=== PATIENT | female | born 1965 | race Caucasian/White ===

== ENCOUNTER 2016-11-04 11:32 | Emergency (ER) | payer OTHER ==
[~2016-11-04] VITALS: Ht 154.9 cm; Wt 71.8 kg
[~2016-11-04 11:32] MED LIST: ADVIN10050 INH; ALBU1AER9 INH; AMIT75TA2 PO; BSP/10 PO; BUDE1TAB PO; ENT3 PO; HYDR12.56 PO; IPRA1AER2 INH; IPRASOL4 INH; OXYC1CAP5 PO; SIMV20TA5 PO; VENL150C56 PO
[2016-11-04 11:43] VITALS: Ht 154.9 cm; Wt 71.8 kg
[2016-11-04] MEDS ORDERED: VNTHFA/IN INH (12:19)
[2016-11-04] MEDS ORDERED: ONDANSETRON INJ 2 MG/ML 2 ML VIAL IV STA (12:58)
[2016-11-04] MEDS ORDERED: TRAMADOL HCL 50 MG TAB PO STA (12:58)
[2016-11-04] MEDS ORDERED: HYDROmorphone INJ 0.5 MG/0.5 ML SYR IV STA (12:58)
[2016-11-04] MEDS ORDERED: KETOROLAC TROMETHAMINE 15 MG/ML VIAL IV STA (12:58)
[2016-11-04] MEDS ORDERED: KETOROLAC TROMETHAMINE 30 MG/ML VIAL ONE (13:27)
[2016-11-04 13:35] LABS: BASO % 0.1 %; BASO ABS # 0.01 K/uL (0-0.2); COMPLETE YES; IG% 0.2 %; LYMPH % 14.9 %; LYMPH ABS # 2.09 K/uL (1.2-3.4); MEAN CELL VOLUME 91.1 fL (80-100); MEAN CORPUSCULAR HEMOGLOBIN 30.7 pg (25-34); MEAN CORPUSCULAR HGB CONC 33.7 g/dl (32-36); MEAN PLATELET VOLUME 9.4 fL (7.4-10.4); MONO % 5.6 %; NEUT % 79.2 %; PLATELET COUNT 293 K/uL (130-400); URINE APPEARANCE CLEAR (CLEAR); URINE BILIRUBIN NEG (NEG); URINE COLOR YELLOW; URINE NITRITE NEG (NEG); URINE SPECIFIC GRAVITY 1.023 (1.000-1.030); UROBILINOGEN NEG (NEG); WHITE BLOOD COUNT 14.04 K/uL (4.8-10.8); ZZUR CULT IF INDIC CLEAN CATCH NO
[2016-11-04 13:41] LABS: MANUAL MICROSCOPIC REQUIRED? NO; REVIEW REQ? NO
[2016-11-04 13:58] LABS: ALT/SGPT 21 U/L (12-78); BLOOD UREA NITROGEN 19 mg/dl (7-18); BUN/CREATININE RATIO 29.2 (10-20); CALCIUM 8.8 mg/dl (8.5-10.1); CARBON DIOXIDE 26 mmol/L (21-32); CHLORIDE 106 mmol/L (98-107); CREATININE 0.64 mg/dl (0.60-1.20); GLUCOSE 95 mg/dl (70-99); POTASSIUM 3.8 mmol/L (3.5-5.1); SODIUM 137 mmol/L (136-145)
[2016-11-04 14:03] LABS: ALKALINE PHOSPHATASE 107 U/L (45-117); AST/SGOT 15 U/L (15-37)
--- NOTE | 2016-11-04 14:32 | DIAGNOSTIC IMAGING REPORT ---
(RENAL)RETROPERITON COMP HISTORY: 51 years-old Female R sided CVATTP, history of right-sided kidney stone . Acute flank pain. COMPARISON: CT 02/27/2014 TECHNIQUE: Multiple real-time sonographic images of the kidneys and urinary bladder were obtained assessing grayscale appearance and color flow. FINDINGS: Right kidney measures 12.5 x 6.0 x 6.8 cm. Mild to moderate dilation of the renal pelvis, Central and peripheral calyces noted with trace perinephric fluid/edema. No obstructing stone or calculus identified. The previously noted large calculus of the interpolar right kidney seen on comparison CT 02/27/2014 is no longer identified. Left kidney measures 11.7 x 6.5 x 5.7 cm. No left-sided hydronephrosis. Left-sided nephrolithiasis noted with 3 mm calculus seen within the inferior pole left kidney. No left-sided renal mass or focal abnormality. Only the left ureteral jet is seen. Urinary bladder is otherwise unremarkable and partially collapsed. IMPRESSION: 1. Mild to moderate right-sided hydronephrosis with absent right ureteral jet suggests ureteral obstruction, not imaged on this study. Follow-up with CT recommended. 2. Previously noted right-sided renal calculi are not identified and may have passed in the interval. 3. Nonobstructing left nephrolithiasis. The above report was generated using voice recognition software. It may contain grammatical, syntax or spelling errors. Electronically signed by: Donovan Maldonado M.D. 11/04/2016 2:30 PM Dictated Date/Time: 11/04/2016 2:26 PM
--- NOTE | 2016-11-04 14:36 | EMERGENCY ROOM VISIT NOTE ---
History Report prepared by Latosha: Catarina Martinez Under the Supervision of: Dr. Wilfrid Lazar M.D. First contact with patient: 11:55 Chief Complaint: KIDNEY STONE Stated Complaint: KIDNEY STONE History of Present Illness The patient is a 51 year old white female with a past medical history of kidney stones who presents to the ED with a cc of right-sided flank pain beginning about 4.5 hours [employer]. Her pain began while she was at work and slowly worsened throughout the morning. Her pain wraps around her right side and into her abdomen. 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 The patient states that it felt like the stone was stuck in that ureter. Her pain [employer]GRAM[employer] was a 10/10. She states that since arriving in the ED she felt that her stone moved, and now her pain has significantly improved. She has taken 3 doses of 500mg hydrocodone throughout the morning today that seemed to help as well. The patient states that this feels like her typical kidney stones. Positive chills, nausea, 1 episode of vomiting, abdominal pain. Negative hematuria, dysuria. She follows with Dr. Jimenez of urology. She has had to have lithotripsy in the past. Source of History: patient Onset: 4.5 hours [employer]GRAM[employer] Position: other (right flank) Symptom Intensity: 10/10 Timing: worsening Modifying Factors (Relieving): narcotics, other (time) Associated Symptoms: + chills, + nausea, + vomiting, + abdominal pain, No urinary symptoms Review of Systems See HPI for pertinent positives and negatives. A total of ten systems were reviewed and were otherwise negative. Past Medical & Surgical Medical Problems: (1) Abdominal pain, left upper quadrant (2) Asthma (3) Kidney stone Surgical Problems: (1) H/O: hysterectomy (2) History of appendectomy (3) History of lithotripsy (4) History of ureter repair Family History Diabetes mellitus Heart disease Hypertension Social History Smoking Status: Never Smoker Smokeless Tobacco Use: No Alcohol Use: occasionally Drug Use: none Marital Status: Housing Status: lives with family Occupation Status: employed Current/Historical Medications Scheduled Albuterol Hfa (Ventolin Hfa), 2-4 PUFFS INH Q6H Amitriptyline Hcl (Elavil), 75 MG PO HS Buspirone HCl (Buspirone HCl), 10 MG PO BID Fluticasone Prop/Salmeterol (Advair Diskus 100-50 Mcg/Dose), 1 PUFF INH BID Ipratropium-Albuterol (Combivent Respimat), 2 PUFFS INH BID Ondasetron Odt (Zofran Odt), 4 MG SL Q6H Venlafaxine Hcl (Effexor Extended Rel), 150 MG PO HS Scheduled PRN Ipratropium-Albuterol (Duoneb), 1 TREATMENT INH Q4H PRN for Shortness of Breath Oxycodone Hcl (Oxycodone Hcl), 5 MG PO Q4H PRN for Pain Oxycodone/Acetaminophen 5MG/325MG (Percocet 5MG/325MG), 1 TABLET PO Q6H PRN for Pain Tramadol (Ultram), 50 MG PO Q8H PRN for Pain Allergies Coded Allergies: Cephalosporins (Verified Allergy, Intermediate, SWELLING AND HIVES, ) Phenazopyridine (Verified Allergy, Mild, RASH, 11/04/16) Amoxicillin (Verified Allergy, Unknown, ., 11/04/16) Clavulanic Acid (Verified Allergy, Unknown, ., 11/04/16) Sulfa Drugs (Verified Allergy, Unknown, HIVES, SWELLING, 11/04/16) Physical Exam Vital Signs Date Time Temp Pulse Resp B/P (MAP) Pulse Ox O2 Delivery O2 Flow Rate FiO2 11/04/16 17:30 36.2 76 18 171/86 97 11/04/16 15:16 76 18 97 Room Air 11/04/16 11:43 36.2 96 20 171/86 97 Room Air Physical Exam GENERAL: Awake, alert, well-appearing, NAD HENT: Normocephalic, atraumatic. EYES: Normal conjunctiva. Sclera non-icteric. NECK: Supple. No nuchal rigidity. FROM. RESPIRATORY: CTAB, no rhonchi, wheezing, crackles CARDIAC: RRR, no MRG ABDOMEN: Soft, NTND, BS+. Right-sided CVA TTP. MSK: No chest wall TTP, no LE edema. NEURO: GCS 15, CN 2-12 intact, moves all 4s on command SKIN: No rash or jaundice noted. Medical Decision & Procedures ER Provider Diagnostic Interpretation: Radiology results as stated below per my review and radiologist interpretation: (RENAL)RETROPERITON COMP HISTORY: 51 years-old Female R sided CVATTP, history of right-sided kidney stone . Acute flank pain. COMPARISON: CT 02/27/2014 TECHNIQUE: Multiple real-time sonographic images of the kidneys and urinary bladder were obtained assessing grayscale appearance and color flow. FINDINGS: Right kidney measures 12.5 x 6.0 x 6.8 cm. Mild to moderate dilation of the renal pelvis, Central and peripheral calyces noted with trace perinephric fluid/edema. No obstructing stone or calculus identified. The previously noted large calculus of the interpolar right kidney seen on comparison CT 02/27/2014 is no longer identified. Left kidney measures 11.7 x 6.5 x 5.7 cm. No left-sided hydronephrosis. Left-sided nephrolithiasis noted with 3 mm calculus seen within the inferior pole left kidney. No left-sided renal mass or focal abnormality. Only the left ureteral jet is seen. Urinary bladder is otherwise unremarkable and partially collapsed. IMPRESSION: 1. Mild to moderate right-sided hydronephrosis with absent right ureteral jet suggests ureteral obstruction, not imaged on this study. Follow-up with CT recommended. 2. Previously noted right-sided renal calculi are not identified and may have passed in the interval. 3. Nonobstructing left nephrolithiasis. The above report was generated using voice recognition software. It may contain grammatical, syntax or spelling errors. Electronically signed by: Donovan Maldonado M.D. 11/04/2016 2:30 PM Dictated Date/Time: 11/04/2016 2:26 PM ABDOMEN AND PELVIS CT WITHOUT CONTRAST CT DOSE: 1378.17 mGy.cm HISTORY: Right flank pain. concern for obstructing stone TECHNIQUE: Multiaxial CT images of the abdomen and pelvis were performed without the use of intravenous and oral contrast according to the standard department stone protocol. A dose lowering technique was utilized adhering to the principles of ALARA. COMPARISON STUDY: Abdomen and pelvis CT 02/27/2014. FINDINGS: There is a punctate stone within the lower pole of each kidney. Right perinephric edema. There is moderate right hydronephrosis to the level of the ureteropelvic junction. However, there are no obstructing stones identified. No ureteral calculi identified. Mild fullness within the right ureter in comparison to the left. The bladder is unremarkable. No bladder calculi. Hysterectomy. The lung bases are clear. The unenhanced liver, gallbladder, spleen, adrenal glands, and pancreas are unremarkable. No significant retroperitoneal lymphadenopathy. Suboptimal evaluation for bowel pathology due to the lack of intravenous and oral contrast. However, there is no definite bowel wall thickening or obstruction. The appendix is not identified and is likely surgically absent. Thickening at the splenic flexure of the colon appears to be due to underdistention. Hysterectomy. IMPRESSION: 1. Moderate right hydronephrosis to the level of the ureteropelvic junction. However, there are no obstructing stones identified. There is also mild right perinephric edema which is likely a result of the obstruction. Therefore, this could be due to a recently passed stone or occult obstructing lesion. Follow-up is recommended to ensure resolution. Urologic consultation is also recommended. 2. Bilateral nephrolithiasis. 3. No bowel wall thickening or obstruction. Electronically signed by: Winston Avila M.D. 11/04/2016 4:02 PM Dictated Date/Time: 11/04/2016 3:49 PM Laboratory Results 11/04/16 13:10 Red Blood Count 4.50, Mean Corpuscular Volume 91.1, Mean Corpuscular Hemoglobin 30.7, Mean Corpuscular Hemoglobin Concent 33.7, Mean Platelet Volume 9.4, Neutrophils (%) (Auto) 79.2, Lymphocytes (%) (Auto) 14.9, Monocytes (%) (Auto) 5.6, Eosinophils (%) (Auto) 0.0, Basophils (%) (Auto) 0.1, Neutrophils # (Auto) 11.12, Lymphocytes # (Auto) 2.09, Monocytes # (Auto) 0.79, Eosinophils # (Auto) 0.00, Basophils # (Auto) 0.01 11/04/16 13:10 Test 11/04/16 13:10 White Blood Count 14.04 K/uL (4.8-10.8) Red Blood Count 4.50 M/uL (4.2-5.4) Hemoglobin 13.8 g/dL (12.0-16.0) Hematocrit 41.0 % (37-47) Mean Corpuscular Volume 91.1 fL (80-100) Mean Corpuscular Hemoglobin 30.7 pg (25-34) Mean Corpuscular Hemoglobin Concent 33.7 g/dl (32-36) Platelet Count 293 K/uL (130-400) Mean Platelet Volume 9.4 fL (7.4-10.4) Neutrophils (%) (Auto) 79.2 % Lymphocytes (%) (Auto) 14.9 % Monocytes (%) (Auto) 5.6 % Eosinophils (%) (Auto) 0.0 % Basophils (%) (Auto) 0.1 % Neutrophils # (Auto) 11.12 K/uL (1.4-6.5) Lymphocytes # (Auto) 2.09 K/uL (1.2-3.4) Monocytes # (Auto) 0.79 K/uL (0.11-0.59) Eosinophils # (Auto) 0.00 K/uL (0-0.5) Basophils # (Auto) 0.01 K/uL (0-0.2) RDW Standard Deviation 47.7 fL (36.4-46.3) RDW Coefficient of Variation 14.2 % (11.5-14.5) Immature Granulocyte % (Auto) 0.2 % Immature Granulocyte # (Auto) 0.03 K/uL (0.00-0.02) Urine Color YELLOW Urine Appearance CLEAR (CLEAR) Urine pH 7.0 (4.5-7.5) Urine Specific [place] 1.023 (1.000-1.030) Urine Protein NEG (NEG) Urine Glucose (UA) NEG (NEG) Urine Ketones 1+ (NEG) Urine Occult Blood 1+ (NEG) Urine Nitrite NEG (NEG) Urine Bilirubin NEG (NEG) Urine Urobilinogen NEG (NEG) Urine Leukocyte Esterase NEG (NEG) Urine WBC (Auto) 1-5 /hpf (0-5) Urine RBC (Auto) 10-30 /hpf (0-4) Urine Hyaline Casts (Auto) 1-5 /lpf (0-5) Urine Epithelial Cells (Auto) 10-20 /lpf (0-5) Urine Bacteria (Auto) NEG (NEG) Anion Gap 5.0 mmol/L (3-11) Est Creatinine Clear Calc Drug Dose 92.1 ml/min Estimated GFR () 118.1 Estimated GFR (Non- 101.9 BUN/Creatinine Ratio 29.2 (10-20) Calcium Level 8.8 mg/dl (8.5-10.1) Total Bilirubin 0.2 mg/dl (0.2-1) Direct Bilirubin < 0.1 mg/dl (0-0.2) Aspartate Amino Transf (AST/SGOT) 15 U/L (15-37) Alanine Aminotransferase (ALT/SGPT) 21 U/L (12-78) Alkaline Phosphatase 107 U/L (45-117) Total Protein 7.2 gm/dl (6.4-8.2) Albumin 3.7 gm/dl (3.4-5.0) Lipase 190 U/L (73-393) Laboratory results reviewed by me. Medications Administered Medications (Trade) Dose Ordered Sig/Mary Route Start Time Stop Time Status Last Admin Dose Admin Hydromorphone HCl (Dilaudid Inj) 0.5 mg NOW STAT IV 11/04/16 12:58 11/04/16 13:00 DC 11/04/16 13:32 0.5 MG Ondansetron HCl (Zofran Inj) 4 mg NOW STAT IV 11/04/16 12:58 11/04/16 13:00 DC 11/04/16 13:32 4 MG Tramadol HCl (Ultram Tab) 50 mg NOW STAT PO 11/04/16 12:58 11/04/16 13:00 DC 11/04/16 13:33 50 MG Ketorolac Tromethamine (Toradol Inj) 30 mg STK-MED ONCE .ROUTE 11/04/16 13:27 11/04/16 13:28 DC 11/04/16 13:32 15 MG ED Course 1155: The patient was evaluated in room C11B. A complete history and physical exam was performed. 1258: Ultram 50 mg PO, Zofran 4 mg IV, Dilaudid 0.5 mg IV 1327: Toradol IV 1414: I went to reevaluate the patient but she was still at US. 1542: I discussed the patient's treatment plan with Adrianna Conley PA-C with the [facility]. 1607: I spoke with Padma Jauregui PA-C with urology. We discussed the patient' s results and treatment plan. She will schedule follow-up in the office as an outpatient. 1624: I reassessed the patient at this time. She is feeling better and resting comfortably. I discussed the results and treatment plan with the patient. I answered all pertaining questions that she had. She expressed understanding and verbalized agreement. The patient will be discharged home. Medical Decision Differential diagnosis: Etiologies such as renal colic, appendicitis, diverticulitis, mesenteric ischemia, aortic pathology, infections, inflammatory bowel disease, PUD, biliary pathology, UTI, as well as others were entertained. The patient is a 51 year old white female with a past medical history of kidney stones who presents to the ED with a cc of right-sided flank pain beginning about 4.5 hours [employer]. Patient presented with her typical symptoms of right-sided flank pain. Patient had taken several by mouth pain medications and that her pain improved improved upon reassessment. Patient did still have some right-sided flank pain but denied any blood in her urine. Patient had lab workup, IV fluids, renal ultrasound. Patient did have a mild white count of 14 but denied any fevers, chills, or urinary symptoms. This may be reactive secondary to passing a kidney stone as she had blood and RBCs in her urine. The patient's renal ultrasound did show some mild to moderate hydronephrosis. Patient also had an absent ureteral jet concerning for possible obstructing stone. A CT noncontrast was completed which show that she had some mild perinephric edema that may be related to a stone passing however no obstructing stones were identified. Patient had fairly normal kidney function with a normal creatinine. Patient's pain was very well controlled. Patient had no symptoms of UTI. Patient was given follow-up with her regular urologist for next Thursday after discussion w/ the PA instructional support technician. Patient was also given additional medications for pain. Patient was injured at all, discharge, and return precautions and patient was discharged home. Medication Reconcilliation Current Medication List: was personally reviewed by me Blood Pressure Screening Patient's blood pressure: Elevated blood pressure Blood pressure disposition: Elevated BP felt to be situational Consults Time Called: 1542 Consulting Physician: Adrianna Conley PA-C Returned Call: 1542 I discussed the patient's treatment plan with Adrianna Conley PA-C with the [facility]. Additional Consults: Time Called: 1604 Consulted Physician: Padma Jauregui PA-C Returned Call: 1607 Additional Comments: I spoke with Padma Jauregui PA-C with urology. We discussed the patient's results and treatment plan. She will schedule follow-up in the office as an outpatient. Impression Primary Impression: Renal colic Additional Impressions: Nephrolithiasis Flank pain Scribe Attestation The scribe's documentation has been prepared under my direction and personally reviewed by me in its entirety. I confirm that the note above accurately reflects all work, treatment, procedures, and medical decision making performed by me. Departure Information Dispostion Home / Self-Care Prescriptions Oxycodone/Acetaminophen 5MG/325MG (PERCOCET 5MG/325MG) Tab 1 TABLET PO Q6H Y for Pain, #6 TAB PAIN Prov: Wilfrid Lazar M.D. 11/04/16 Tramadol (Ultram) 50 Mg Tab 50 MG PO Q8H Y for Pain, #15 TAB Prov: Wilfrid Lazar M.D. 11/04/16 Ondasetron Odt (ZOFRAN ODT) 4 Mg Tab 4 MG SL Q6H for Nausea, #6 TAB Prov: Wilfrid Lazar M.D. 11/04/16 Referrals Citlaly Upton C.R.N.PJessica (PCP) Patient Instructions Kidney Stones, Kidney Stones Eval, [facility] Additional Instructions Please return to the emergency department if you have worsening or recurrent symptoms not amenable to at-home treatment. Please call for a follow-up appointment with her primary care physician. Please take your medications as prescribed. If you have other concerns and/or complaints please feel free to also call your primary care physician's office or return the ED for further evaluation, management, and treatment. You were found to have an elevated blood pressure today (>120 sytolic or >90 diastolic). Per medicare guidelines, you need to follow up with this blood pressure screening with your Primary Care Physician (PCP). For a new PCP call [phone]. You received narcotic or benzodiazepene medication while in the emergency room today. This is an addictive medication that may cause drowziness as well as constipation. Do not drive, operate heavy machinery, or drink alcohol under the influence of this medication. Take 600 mg Ibuprofen every 6 hours, no more than 2 consecutive days, take w/ food. Take Percocet for breakthrough pain. You have been examined and treated today on an emergency basis only. This is not a substitute for, or an effort to provide, complete comprehensive medical care. It is impossible to recognize and treat all injuries or illnesses in a single emergency department visit. It is therefore important that you follow up closely with [facility], your PCP, and/or your specialist. Call as soon as possible for an appointment. Thank you for your time and consideration. I look forward to speaking with you again soon. Please don't hesitate to call us if you have any questions. Work Instructions Return To Work: 1 day Specific Date: May return on 11/06/16 Problem Qualifiers
--- NOTE | 2016-11-04 16:04 | DIAGNOSTIC IMAGING REPORT ---
ABDOMEN AND PELVIS CT WITHOUT CONTRAST CT DOSE: 1378.17 mGy.cm HISTORY: Right flank pain. concern for obstructing stone TECHNIQUE: Multiaxial CT images of the abdomen and pelvis were performed without the use of intravenous and oral contrast according to the standard department stone protocol. A dose lowering technique was utilized adhering to the principles of ALARA. COMPARISON STUDY: Abdomen and pelvis CT 02/27/2014. FINDINGS: There is a punctate stone within the lower pole of each kidney. Right perinephric edema. There is moderate right hydronephrosis to the level of the ureteropelvic junction. However, there are no obstructing stones identified. No ureteral calculi identified. Mild fullness within the right ureter in comparison to the left. The bladder is unremarkable. No bladder calculi. Hysterectomy. The lung bases are clear. The unenhanced liver, gallbladder, spleen, adrenal glands, and pancreas are unremarkable. No significant retroperitoneal lymphadenopathy. Suboptimal evaluation for bowel pathology due to the lack of intravenous and oral contrast. However, there is no definite bowel wall thickening or obstruction. The appendix is not identified and is likely surgically absent. Thickening at the splenic flexure of the colon appears to be due to underdistention. Hysterectomy. IMPRESSION: 1. Moderate right hydronephrosis to the level of the ureteropelvic junction. However, there are no obstructing stones identified. There is also mild right perinephric edema which is likely a result of the obstruction. Therefore, this could be due to a recently passed stone or occult obstructing lesion. Follow-up is recommended to ensure resolution. Urologic consultation is also recommended. 2. Bilateral nephrolithiasis. 3. No bowel wall thickening or obstruction. Electronically signed by: Winston Avila M.D. 11/04/2016 4:02 PM Dictated Date/Time: 11/04/2016 3:49 PM
[2016-11-04] MEDS ORDERED: TRAM-10 PO (16:16)
[2016-11-04] MEDS ORDERED: ONDA4TAB10 SL (16:16)
[2016-11-04] MEDS ORDERED: OXYC-57 PO (16:16)
[2016-11-04 17:30] VITALS: BP 171/86; PULSE 76; TEMP 36.2; O2SAT 97
== END 2016-11-04 17:30 | disposition home or self-care (01) ==
LOC: C.EDB 11:33 → C.EDC 17:30
DX: N20.0 Calculus of kidney (principal); J45.909 Unspecified asthma, uncomplicated; Z87.442 Personal history of urinary calculi; Z90.710 Acquired absence of both cervix and uterus; Z98.890 Other specified postprocedural states; Z79.899 Other long term (current) drug therapy; Z88.1 Allergy status to other antibiotic agents; Z88.2 Allergy status to sulfonamides; Z88.8 Allergy status to other drugs, medicaments and biological substances; Z83.3 Family history of diabetes mellitus; Z82.49 Family history of ischemic heart disease and other diseases of the circulatory system

== ENCOUNTER → 2016-12-09 | Outpatient (CLI) | payer OTHER ==
[~2016-12-09] MED LIST changes: -ALBU1AER9 INH; -BUDE1TAB PO; -ENT3 PO; -HYDR12.56 PO; +ONDA4TAB10 SL; +OXYC-57 PO; -SIMV20TA5 PO; +TRAM-10 PO; +VNTHFA/IN INH
[2016-12-09 13:12] LABS: CHOLESTEROL/HDL RATIO 2.5
== END | disposition home or self-care (01) ==
LOC: C.LABBFT 07:41
PROVIDERS: ATTEND Nurse Practitioner
DX: Z13.6 Encounter for screening for cardiovascular disorders (principal); Z13.1 Encounter for screening for diabetes mellitus

== ENCOUNTER → 2016-12-26 | Outpatient (CLI) | payer OTHER ==
--- NOTE | 2016-12-26 15:52 | MAMMOGRAPHY REPORT ---
BILATERAL DIGITAL SCREENING MAMMOGRAM TOMOSYNTHESIS WITH CAD: 12/26/2016 CLINICAL HISTORY: Routine screening. Patient has no complaints. TECHNIQUE: Breast tomosynthesis in addition to standard 2D mammography was performed. Current study was also evaluated with a Computer Aided Detection (CAD) system. COMPARISON: Comparison is made to exams dated: 05/20/2016 mammogram, 05/12/2012 mammogram, and 05/08/2011 mammogram. BREAST COMPOSITION: The tissue of both breasts is almost entirely fatty. FINDINGS: No suspicious masses, calcifications, or areas of architectural distortion are noted in ei ther breast. There has been no significant interval change compared to prior exams. IMPRESSION: ACR BI-RADS CATEGORY 1: NEGATIVE There is no mammographic evidence of malignancy. A 1 year screening mammogram is recommended. The pa tient will receive written notification of the results. Approximately 10% of breast cancers are not detected with mammography. A negative mammographic report should not delay biopsy if a clinically suggestive mass is present. Mel Valladares M.D. ah/:12/26/2016 13:40:30 Order Builder: Miranda REYES(R)(M), [facility] letter sent: Normal 1/2 BI-RADS Code: ACR BI-RADS Category 1: Negative
== END | disposition home or self-care (01) ==
LOC: C.MAMM 11:27
PROVIDERS: ATTEND Nurse Practitioner
DX: Z12.31 Encounter for screening mammogram for malignant neoplasm of breast (principal)

== ENCOUNTER 2017-01-28 18:54 | Emergency (ER) | payer OTHER ==
[~2017-01-28] VITALS: Ht 154.9 cm; Wt 76.0 kg
[2017-01-28 18:56] VITALS: TEMP 36.6; Ht 154.9 cm; Wt 76.0 kg
[2017-01-28 19:42] LABS: URINE APPEARANCE CLEAR (CLEAR); URINE BILIRUBIN NEG (NEG); URINE COLOR YELLOW; URINE NITRITE NEG (NEG); URINE PH 6.5 (4.5-7.5); URINE SPECIFIC GRAVITY 1.018 (1.000-1.030); UROBILINOGEN NEG (NEG)
[2017-01-28 19:43] LABS: MANUAL MICROSCOPIC REQUIRED? NO; REVIEW REQ? NO
[2017-01-28] MEDS ORDERED: ULT50 PO (20:01)
[2017-01-28] MEDS ORDERED: OXYC-57 PO (20:01)
[2017-01-28] MEDS ORDERED: DOXY100C41 PO (20:01)
[2017-01-28] MEDS ORDERED: PHEN37.5 PO (20:01)
[2017-01-28 20:15] LABS: BENZODIAZEPINE, URINE NEG (NEG); COCAINE,URINE NEG (NEG); PHENCYCLIDINE, URINE NEG (NEG)
[2017-01-28 20:38] LABS: MEAN CORPUSCULAR HEMOGLOBIN 30.8 pg (25-34); MEAN CORPUSCULAR HGB CONC 33.4 g/dl (32-36); PLATELET COUNT 263 K/uL (130-400); RED BLOOD COUNT 4.13 M/uL (4.2-5.4); WHITE BLOOD COUNT 9.62 K/uL (4.8-10.8)
[2017-01-28 20:58] LABS: ALT/SGPT 23 U/L (12-78); BLOOD UREA NITROGEN 11 mg/dl (7-18); BUN/CREATININE RATIO 22.4 (10-20); CALCIUM 8.5 mg/dl (8.5-10.1); CARBON DIOXIDE 29 mmol/L (21-32); CHLORIDE 107 mmol/L (98-107); CREATININE 0.51 mg/dl (0.60-1.20); GLUCOSE 86 mg/dl (70-99); POTASSIUM 3.6 mmol/L (3.5-5.1); SODIUM 141 mmol/L (136-145)
[2017-01-28 21:03] VITALS: BP 160/87; PULSE 85; O2SAT 97
[2017-01-28 21:03] LABS: ACETAMINOPHEN < 2 ug/ml (10-30)
[2017-01-28 21:09] LABS: ALKALINE PHOSPHATASE 101 U/L (45-117); AST/SGOT 15 U/L (15-37); THYROID STIMULATING HORMONE 0.818 uIu/ml (0.300-4.500)
--- NOTE | 2017-01-28 21:28 | EMERGENCY ROOM VISIT NOTE ---
History Report prepared by Latosha: Terrell Santo Under the Supervision of: Dr. El Abel M.D. First contact with patient: 19:00 Chief Complaint: MENTAL HEALTH EVALUATION Stated Complaint: MENTAL HEALTH EVAL History of Present Illness The patient is a 51 year old female who presents to the Emergency Room via police for a mental health evaluation. Per the on scene crime prevention police officer, they were called to the scene for a verbal domestic dispute. Upon arrival, the patient was arguing with her son about her car keys. She had told him that she wanted to leave so she could be alone. According to the officer the patient told her son that she was planning on walking into traffic to kill herself. She told the officer that she wanted to but that she did not want to kill herself. She has a long-standing history of depression. There was no physical altercation or injury. Per the patient, she states she does not want to kill herself, she just has a "broken heart." Her daughter has been extremely mean to her and constantly "breaks her heart." She states that she is also unappreciative, mean, and hateful. She is just "very sad and upset." After being asked why she was arguing with her son, she states that she wanted to car keys so that she could leave and go to her friend's house. Her daughter invited her family over for Thanksgiving, but excluded her. She denies any abnormal physical symptoms at this time. She denies any medical problems. She denies any alcohol or drug use. She confirmed with us that she told her son that she wants to step out in front of a [employer] truck. However, she said this because she wants her son to see how much her daughter hurt her. Apparently her daughter told her that she was a bad mother. She asked her son about this and he said she was not a bad mother. Source of History: patient Onset: tonight Position: other (Mental Health) Symptom Intensity: moderate Quality: other (Suicidal statements) Timing: constant Note: She denies any other abnormal symptoms. Review of Systems See HPI for pertinent positives & negatives. A total of 10 systems reviewed and were otherwise negative. Past Medical & Surgical Medical Problems: (1) Abdominal pain, left upper quadrant (2) Asthma (3) Kidney stone Surgical Problems: (1) H/O: hysterectomy (2) History of appendectomy (3) History of lithotripsy (4) History of ureter repair Family History Diabetes mellitus Heart disease Hypertension Social History Smoking Status: Never Smoker Alcohol Use: occasionally Drug Use: none Marital Status: Housing Status: lives with family Occupation Status: employed Current/Historical Medications Scheduled Albuterol Hfa (Ventolin Hfa), 2 PUFFS INH Q6H Amitriptyline Hcl (Elavil), 75 MG PO HS Buspirone HCl (Buspirone HCl), 10 MG PO BID Doxycycline (Monohydrate) (Monodox), 100 MG PO BID Phentermine Hcl (Phentermine Hcl), 1 TAB PO DAILY Venlafaxine Hcl (Effexor Extended Rel), 150 MG PO HS Scheduled PRN Fluticasone Prop/Salmeterol (Advair Diskus 100-50 Mcg/Dose), 1 PUFF INH BID PRN for SOB/Wheezing Ipratropium-Albuterol (Duoneb), 1 TREATMENT INH Q4H PRN for Shortness of Breath Oxycodone Hcl (Oxycodone Hcl), 5 MG PO Q4H PRN for Pain Oxycodone/Acetaminophen 5MG/325MG (Percocet 5MG/325MG), 1 TABLET PO Q6H PRN for Pain Tramadol HCl (Tramadol HCl), 50 MG PO Q8 PRN for Pain Allergies Coded Allergies: Cephalosporins (Verified Allergy, Intermediate, SWELLING AND HIVES, ) Phenazopyridine (Verified Allergy, Mild, RASH, 11/04/16) Amoxicillin (Verified Allergy, Unknown, ., 11/04/16) Clavulanic Acid (Verified Allergy, Unknown, ., 11/04/16) Sulfa Drugs (Verified Allergy, Unknown, HIVES, SWELLING, 11/04/16) Physical Exam Vital Signs Date Time Temp Pulse Resp B/P (MAP) Pulse Ox O2 Delivery O2 Flow Rate FiO2 01/28/17 21:03 85 18 160/87 97 01/28/17 18:56 36.6 96 18 166/93 98 Room Air Physical Exam Constitutional: Vital signs reviewed. Eyes: Pupils are equal round reactive to light. Conjunctiva are noninjected. ENT: Pharynx is clear without erythema or exudate. Mucous membranes are moist. Neck supple without meningeal signs. Respiratory: Clear to auscultation bilaterally. Breath sounds are equal bilaterally. Cardiovascular: Regular rate and rhythm. No rubs or gallops. GI: Soft, nondistended and nontender. Bowel sounds are present. Musculoskeletal: No peripheral edema. No lower extremity tenderness. Integumentary: No cyanosis. Neurological: The patient is awake and alert. No focal deficits. Psychiatric: Patient is agitated and crying. Medical Decision & Procedures Laboratory Results 01/28/17 20:25 01/28/17 20:23 Test 01/28/17 19:18 01/28/17 20:23 01/28/17 20:25 Urine Color YELLOW Urine Appearance CLEAR (CLEAR) Urine pH 6.5 (4.5-7.5) Urine Specific [place] 1.018 (1.000-1.030) Urine Protein NEG (NEG) Urine Glucose (UA) NEG (NEG) Urine Ketones NEG (NEG) Urine Occult Blood TRACE (NEG) Urine Nitrite NEG (NEG) Urine Bilirubin NEG (NEG) Urine Urobilinogen NEG (NEG) Urine Leukocyte Esterase SMALL (NEG) Urine WBC (Auto) 1-5 /hpf (0-5) Urine RBC (Auto) 5-10 /hpf (0-4) Urine Hyaline Casts (Auto) 1-5 /lpf (0-5) Urine Epithelial Cells (Auto) 10-20 /lpf (0-5) Urine Bacteria (Auto) NEG (NEG) Urine Opiates Screen NEG (NEG) Urine Methadone, Qualitative NEG (NEG) Urine Barbiturates NEG (NEG) Urine Phencyclidine (PCP) Level NEG (NEG) Ur Amphetamine/Methamphetamine POS (NEG) MDMA (Ecstasy) Screen NEG (NEG) Urine Benzodiazepines Screen NEG (NEG) Urine Cocaine Metabolite NEG (NEG) Urine Marijuana (THC) NEG (NEG) Anion Gap 5.0 mmol/L (3-11) Est Creatinine Clear Calc Drug Dose 118.9 ml/min Estimated GFR () 127.2 Estimated GFR (Non- 109.8 BUN/Creatinine Ratio 22.4 (10-20) Calcium Level 8.5 mg/dl (8.5-10.1) Total Bilirubin 0.2 mg/dl (0.2-1) Direct Bilirubin < 0.1 mg/dl (0-0.2) Aspartate Amino Transf (AST/SGOT) 15 U/L (15-37) Alanine Aminotransferase (ALT/SGPT) 23 U/L (12-78) Alkaline Phosphatase 101 U/L (45-117) Total Protein 6.9 gm/dl (6.4-8.2) Albumin 3.6 gm/dl (3.4-5.0) Thyroid Stimulating Hormone (TSH) 0.818 uIu/ml (0.300-4.500) Salicylates Level 3.3 mg/dl (2.8-20) Acetaminophen Level < 2 ug/ml (10-30) Red Blood Count 4.13 M/uL (4.2-5.4) Mean Corpuscular Volume 92.0 fL (80-100) Mean Corpuscular Hemoglobin 30.8 pg (25-34) Mean Corpuscular Hemoglobin Concent 33.4 g/dl (32-36) RDW Standard Deviation 48.3 fL (36.4-46.3) RDW Coefficient of Variation 14.4 % (11.5-14.5) Mean Platelet Volume 9.0 fL (7.4-10.4) Ethyl Alcohol mg/dL < 3.0 mg/dl (0-3) Laboratory results as reviewed by me. ED Course 1899: The patient was evaluated in room B12B. A complete history and physical exam was performed. 2112: I talked to the patient and the patient's son separately in great detail. He states that he does not feel that the patient is a risk to herself. The reason that the police were called is because he would not give her her car keys because she was upset, so she called the police. He would not give her her car keys because he did not want anything to happen to her while she was driving because she was upset, not because he thought she was going to kill herself. She will follow up with therapy in the near future, and her son will keep a close eye on her tomorrow. 2119: Upon reevaluation, the patient appeared to have improvement of her symptoms. I discussed dakota's findings with her. She verbalized agreement of the treatment plan. She was discharged home. Medical Decision This is a 51-year-old female who presents for mental health evaluation. She is brought in by police under a 302 warrant. I did perform a limited focused review of portions of the patient's old chart on the electronic medical record. The patient has had no recent pertinent visits to this hospital. I did evaluate the patient as noted above. The patient admits to making suicidal statements to the crime prevention police officer as well as her son. She states she did this because she has a broken heart because of her daughter. I did order and personally review the patient's urinalysis and urine drug screen as described above. I did order and review the patient's blood work as noted in the electronic medical record. I did medically clear the patient. I did have a long discussion with the patient. I also spoke to her son separately. The patient states that the only reason she said those things to her son was because she wanted him to know how hurt she was. She had no intention of hurting herself. She told the crime prevention police officer that she wanted to because she wanted to explain the situation and how upset she was. She stated that she was not suicidal at all and had no intention of hurting herself. She has no prior history of suicide attempt. I did speak to the son who stated that he did not feel the patient was at risk for hurting herself. She apparently called the police herself because her son would not give her her car keys. Her son states that the only reason he was keeping her car keys from her was that because she was upset and he did not want her to drive off and get into an accident. He did not actually believe that the patient was going to harm herself. He states that she has never done anything to suggest this. She has a tendency to be dramatic. She is afraid of guns and has no access to them. He states that even though she is not invited to Thanksgiving tomorrow she will not be a danger to herself even if she drinks alcohol. He states that he will keep an eye on her tomorrow. He understands that we cannot completely rule out the possibility that she may hurt herself, although she does score low when a risk assessment for suicidality is made here. She is adamant about not be admitted to the hospital. She states that she is willing to see a therapist and states that she has a lot of things to do and will keep herself busy tomorrow. She was discharged with her son in good condition. Medication Reconcilliation Current Medication List: was personally reviewed by me Blood Pressure Screening Patient's blood pressure: Elevated blood pressure Blood pressure disposition: Referred to PCP Impression Primary Impression: Mood disorder Scribe Attestation The scribe's documentation has been prepared under my direct and personally reviewed by me in its entirety. I confirm that the note above accurately reflects all work, treatment, procedures, and medical decision making performed by me. Departure Information Dispostion Home / Self-Care Referrals No Doctor, Assigned (PCP) Forms HOME CARE DOCUMENTATION FORM, IMPORTANT VISIT INFORMATION Patient Instructions My [facility] Additional Instructions You have been examined and treated today on an emergency basis only. This is not a substitute for, or an effort to provide, complete comprehensive medical care. It is impossible to recognize and treat all injuries or illnesses in a single emergency department visit. It is therefore important that you follow up closely with your physician and the therapist. Call as soon as possible for an appointment. Return for worsening symptoms or if you develop thoughts of hurting herself or others or any other concerning symptoms.
== END 2017-01-28 21:31 | disposition home or self-care (01) ==
LOC: C.EDB 18:54 → C.EDA 21:31
DX: F39 Unspecified mood [affective] disorder (principal); J45.909 Unspecified asthma, uncomplicated; Z87.442 Personal history of urinary calculi; Z83.3 Family history of diabetes mellitus; Z82.49 Family history of ischemic heart disease and other diseases of the circulatory system; Z79.899 Other long term (current) drug therapy

== ENCOUNTER → 2017-05-19 | Outpatient (CLI) | payer OTHER ==
[~2017-05-19] MED LIST changes: +DOXY100C41 PO; -IPRA1AER2 INH; -ONDA4TAB10 SL; +PHEN37.5 PO; -TRAM-10 PO; +ULT50 PO
--- NOTE | 2017-05-19 18:22 | DIAGNOSTIC IMAGING REPORT ---
THORACIC SPINE 3 VIEWS ROUTINE CLINICAL HISTORY: Chronic mid back pain. COMPARISON STUDY: Chest radiograph January 26, 2016. FINDINGS: Alignment of the thoracic spine is anatomic. There is no fracture or suspicious lesion by radiography. Disc spaces are preserved. There is mild anterior osteophytosis of the thoracic spine. IMPRESSION: 1. No thoracic spine fracture or subluxation. 2. Mild multilevel degenerative disc disease of the thoracic spine. Electronically signed by: James Salinas M.D. 05/19/2017 6:21 PM Dictated Date/Time: 05/19/2017 6:20 PM
== END | disposition home or self-care (01) ==
LOC: C.RAD 15:51
PROVIDERS: ATTEND Nurse Practitioner
DX: M54.6 Pain in thoracic spine (principal)